=== PATIENT | female | born 1945 | race Caucasian/White ===

== ENCOUNTER 2016-11-02 | Outpatient (CLI) | payer MEDICARE, OTHER | END 2016-11-02 02:42 | disposition EMS.NT ==

== ENCOUNTER 2017-11-27 09:03 | Outpatient (CLI) | payer MEDICARE, OTHER ==
--- NOTE | 2017-11-27 16:11 | DEXA Report ---
DEXA SCAN: 11/27/2017 CLINICAL INDICATION: Postmenopausal. TECHNIQUE: Dual energy x-ray absorptiometry (DXA) was performed on a [employer] system. Regions measured are the AP spine, femoral neck, and, if needed, forearm. COMPARISON: None. In accordance with the International Society for Clinical Densitometry (ISCD) guidelines, data from previous exams may be reanalyzed using current recommendations and techniques. This is done to allow a more accurate basis for comparison with the current study. FINDINGS: The data for the lumbar spine is as follows: REGION BMD (g/cm/cm) T-SCORE Z-SCORE L1 1.528 3.3 5.3 L2 1.387 1.6 3.6 L3 1.272 0.6 2.6 L4 1.239 0.3 2.3 TOTAL 1.343 1.4 3.4 NOTE: All evaluable vertebrae are used for classification. The data for the hip is as follows: REGION BMD (g/cm/cm) T-SCORE Z-SCORE Neck 0.782 -1.8 0.2 TOTAL 0.752 -2.0 -0.1 NOTE: The femoral neck or total proximal femur, whichever is lowest, is used for classification. IMPRESSION: THE WHO CLASSIFICATION BASED ON THE INTERNATIONAL REFERENCE STANDARD IS OSTEOPENIA. THE FRACTURE RISK IS INCREASED. RECOMMENDATION: Patients with diagnosis of osteoporosis or osteopenia should have regular bone mineral density assessment. For those eligible for Medicare, routine testing is allowed once every 2 years. Testing frequency can be increased for patients who have rapidly progressing disease or for those who are receiving medical therapy to restore bone mass. COMMENT: World Health Organization (WHO) definitions for osteoporosis and osteopenia: NORMAL BMD: T-score at 1.0 or higher, fracture risk is low. OSTEOPENIA BMD: T-score between 1.0 and -2.5, fracture risk is increased. OSTEOPOROSIS BMD: T-score at 2.5 or lower, fracture risk high. National Osteoporosis Foundation recommends: 1. Obtain adequate dietary calcium (at least 1200 mg per day) and vitamin D (400-800 international units per day). 2. Participate, as appropriate, in regular weightbearing and muscle-strengthening exercise. 3. Avoid tobacco use and reduce alcohol and caffeine intake. 4. For more detailed information see the website at www.NOF.org. TD: 11/27/2017 11:44
== END 2017-11-27 09:04 | disposition home or self-care (01) ==
LOC: DI 09:03
PROVIDERS: ATTEND Family Medicine
DX: M85.88 Other specified disorders of bone density and structure, other site (principal)
CPT/HCPCS: 77080

== ENCOUNTER 2020-05-11 22:30 | Emergency (ER) | payer MEDICARE, OTHER ==
--- NOTE | 2020-05-11 22:57 | ED Physician Documentation ---
PD HPI UPPER EXT INJURY - Stated complaint Stated Complaint: R ARM THROB - Chief complaint Chief Complaint: Ext Problem - History obtained from History obtained from: Patient - History of Present Illness Location: Right, Shoulder (axillary and anterior shoulder area.) Type of injury: No: Fall, Twist Where injury occurred: Home Timing - onset: How many hours ago (3) Timing - duration: Hours (3) Timing - details: Abrupt onset (She states she was lying in bed starting to go to sleep and noticed onset of a aching and throbbing feeling in the right axilla and anterior shoulder. Slight worse with movement. No change with breathing. She denied chest pain per se. No injury noted. She was concerned for heart cause.), Waxing and waning Improved by: No: Rest Worsened by: Moving (slightly more with ROM but not distinctly movement related.). No: Palpating Associated symptoms: No: Weakness, Numbness, Swelling Similar symptoms before: Has not had sx before (She is active during the day and has not had any exertional dyspnea nor chest pain.) Recently seen: Not recently seen Review of Systems Constitutional: denies: Fever, Chills, Myalgias Nose: denies: Rhinorrhea / runny nose, Congestion Throat: denies: Sore throat Cardiac: denies: Chest pain / pressure, Palpitations, Pedal edema (has had some mild swelling without redness around left anterior lower leg where she had skin lesion removed a week ago. No signs infection such as redness nor drainage.), Calf pain Respiratory: denies: Cough GI: denies: Abdominal Pain, Nausea, Vomiting, Diarrhea Neurologic: denies: Focal weakness, Numbness, Near syncope PD PAST MEDICAL HISTORY - Past Medical History Cardiovascular: None, Hypertension, High cholesterol Respiratory: None Neuro: None Endocrine/Autoimmune: None GI: GERD : None HEENT: None Psych: Claustrophobia Musculoskeletal: None Derm: None - Past Surgical History Past Surgical History: No - Present Medications Home Medications: Ambulatory Orders Medication Instructions Recorded Confirmed Lisinopril/Hydrochlorothiazide 1 each PO DAILY 01/13/13 01/13/13 [Lisinopril-Hctz 20-25 mg Tab] Lovastatin [Mevacor] 40 mg PO DAILY 01/13/13 01/13/13 Omeprazole [PriLOSEC] 20 mg PO DAILY 01/13/13 01/13/13 Potassium Chloride 10 meq PO DAILY #15 tablet.er 05/12/20 - Allergies Allergies/Adverse Reactions: Allergies Allergy/AdvReac Type Severity Reaction Status Date / Time No Known Drug Allergies Allergy Verified 01/13/13 04:36 - Social History Does the pt smoke?: No Smoking Status: Never smoker Does the pt drink ETOH?: Yes Does the pt have substance abuse?: No - Immunizations Immunizations are current?: Yes PD ED PE NORMAL - Vitals Vital signs reviewed: Yes - General General: Alert and oriented X 3, No acute distress, Well developed/nourished - HEENT HEENT: Pharynx benign - Neck Neck: Supple, no meningeal sign, No adenopathy - Cardiac Cardiac: RRR, No murmur - Respiratory Respiratory: Clear bilaterally, Other (No tenderness nor swelling nor adenopathy noted in the axilla. No chest wall tenderness on the right.) - Abdomen Abdomen: Soft, Non tender - Derm Derm: Normal color, Warm and dry - Extremities Extremities: No deformity, No tenderness to palpate, No edema, No calf tenderness / cord, Other (Healing wound on the left anterior lower leg without any signs of infection.) - Neuro Neuro: Alert and oriented X 3, No motor deficit, Normal speech Results - Vitals Vitals: Vital Signs - 24 hr 05/11/20 05/12/20 22:35 00:36 Temperature 36.7 C Heart Rate 68 70 Respiratory 18 18 Rate Blood Pressure 158/87 H 162/92 H O2 Saturation 100 98 Oxygen O2 Source Room air - EKG (time done) 23:24 Rate: Rate (enter#) (67) Rhythm: NSR [place]: Normal Intervals: Normal AR QRS: Normal Ischemia: Normal ST segments. No: ST elevation c/w ischemia, ST depression Compare to prior EKG: Old EKG unavailable - Labs Labs: Laboratory Tests 05/11/20 05/11/20 05/11/20 23:41 23:41 23:41 WBC 3.6 L RBC 3.76 L Hgb 11.6 L Hct 35.0 L MCV 93.1 MCH 30.9 MCHC 33.1 RDW 12.5 Plt Count 170 MPV 8.7 Neut # (Auto) 1.8 Lymph # (Auto) 1.3 L [place] # (Auto) 0.4 Eos # (Auto) 0.1 Baso # (Auto) 0.0 Absolute Nucleated RBC 0.00 Nucleated RBC % 0.0 Sodium 133 L Potassium 3.0 L Chloride 95 L Carbon Dioxide 28 Anion Gap 10.0 BUN 9 Creatinine 0.6 Estimated GFR (MDRD) 97 Glucose 120 H Calcium 9.5 Total Bilirubin 0.7 AST 25 ALT 18 Alkaline Phosphatase 46 Troponin I High Sens 2.5 Total Protein 7.0 Albumin 4.3 Globulin 2.7 Albumin/Globulin Ratio 1.6 Lipase 34 PD MEDICAL DECISION MAKING - ED course Complexity details: considered differential (No signs of cardiac cause based on EKG and troponin. Her potassium is little bit low but I do not think this would be causing her symptoms. Otherwise blood count is normal and remaining chemistry panel. Presume some muscular type pain. No palpation of abscess or skin lesion.), d/w patient Departure - Departure Disposition: 01 Home, Self Care Clinical Impression: Pain in right axilla, Hypokalemia Condition: Stable Record reviewed to determine appropriate education?: Yes Instructions: ED Potassium Deficiency, ED Strain Muscle Ext Follow-Up: Cedric Mathews MD [Primary Care Provider] - Prescriptions: Potassium Chloride 10 meq PO DAILY #15 tablet.er Comments: Your EKG and blood tests do not show any indication of heart injury/heart attack. Your blood tests otherwise show a mildly low potassium level, which I think is unrelated to the symptoms you are having but still worth supplementing over the next couple of weeks. Presume a muscular type pain and you can use some Tylenol or ibuprofen if you times a day as needed. Recheck if not improved over the next several days or if other symptoms develop with it. Discharge Date/Time: 05/12/20 00:36
[2020-05-11 23:47] LABS: BASOPHILS % (AUTO) 1.1 %; EOSINOPHILS # (AUTO) 0.1 10^3/uL (0.0-0.7); EOSINOPHILS % (AUTO) 3.3 %; HGB - HEMOGLOBIN 11.6 g/dL (12.0-16.0); LYMPHOCYTES # (AUTO) 1.3 10^3/uL (1.5-3.5); LYMPHOCYTES % (AUTO) 35.6 %; MEAN CORPUSCULAR HEMOGLOBIN 30.9 pg (27.0-31.0); MEAN CORPUSCULAR HGB CONC 33.1 g/dL (32.0-36.0); MEAN CORPUSCULAR VOLUME 93.1 fL (81.0-99.0); MEAN PLATELET VOLUME 8.7 fL (7.9-10.8); MONOCYTES # (AUTO) 0.4 10^3/uL (0.0-1.0); NEUTROPHILS # (AUTO) 1.8 10^3/uL (1.5-6.6); NEUTROPHILS % (AUTO) 49.7 %; PLT - PLATELET COUNT 170 10^3/uL (130-450); RED BLOOD COUNT 3.76 10^6/uL (4.20-5.40); RED CELL DISTRIBUTION WIDTH 12.5 % (12.0-15.0); WHITE BLOOD COUNT 3.6 x10^3/uL (4.8-10.8)
[2020-05-12] LABS: ALBUMIN 4.3 g/dL (3.2-5.5); ALBUMIN/GLOBULIN RATIO 1.6 (1.0-2.2); BILIRUBIN,TOTAL 0.7 mg/dL (0.2-1.0); CALCIUM 9.5 mg/dL (8.5-10.3); CREATININE 0.6 mg/dL (0.4-1.0)
[2020-05-12] MEDS ORDERED: ACETAMINOPHEN 325 MG TABLET PO STA (00:17)
[2020-05-12 00:37] VITALS: BP 162/92
== END 2020-05-12 00:36 | disposition home or self-care (01) ==
LOC: ED 22:30
DX: M79.621 Pain in right upper arm (principal); M25.511 Pain in right shoulder; E87.6 Hypokalemia; I10 Essential (primary) hypertension
CPT/HCPCS: 36415; 80053; 83690; 84484; 85025; 93005; 99283; 99284; A9270

== ENCOUNTER 2020-09-24 12:35 | Outpatient (CLI) | payer MEDICARE ==
--- NOTE | 2020-09-25 07:16 | Mammography Report ---
BILATERAL DIGITAL SCREENING MAMMOGRAM 3D/2D: 09/24/2020 CLINICAL: Routine screening. Comparison is made to exams dated: 08/16/2019 mammogram, 08/15/2018 mammogram, 08/08/2017 mammogram, a nd 08/02/2016 mammogram - [facility]. The tissue of both breasts is predominantly fatt y. There are benign calcifications in both breasts. There also are benign vascular calcifications in th e right breast. No significant masses, calcifications, or other findings are seen in either breast. There has been no significant interval change. IMPRESSION: BENIGN There is no mammographic evidence of malignancy. A 1 year screening mammogram is recommended. This exam was interpreted at Station ID: [id number]. NOTE: For mammograms, a report in lay terms will be sent to the patient. Approximately 15% of breast malignancies will not be visualized mammographically. In the management of a palpable breast mass, a negative mammogram must not discourage biopsy of a clinically suspicious lesion. Electronically Signed By: Kemar Patricio acr/penrad:09/24/2020 13:36:33 ACR BI-RADS Category 2: Benign Finding(s) 3342F PARENCHYMAL PATTERN: (F) - The breast(s) demonstrate(s) diffuse fatty replacement. BI-RADS CATEGORY: (2) - 2 RECOMMENDATION: (ANNUAL) - Recommend routine annual screening mammography. [id number] 1 year screening LATERALITY: (B)
== END 2020-09-24 12:36 | disposition home or self-care (01) ==
LOC: DI 12:35
DX: Z12.31 Encounter for screening mammogram for malignant neoplasm of breast (principal)
CPT/HCPCS: 77067

== ENCOUNTER 2021-10-05 08:49 | Emergency (ER) | payer MEDICARE, OTHER ==
--- NOTE | 2021-10-05 09:21 | ED Physician Documentation ---
PD HPI HEADACHE - Stated complaint Stated Complaint: L WRIST INJ, HEADACHES - Chief complaint Chief Complaint: General - History obtained from History obtained from: Patient - History of Present Illness Timing - onset: Last night Timing - onset during: Rest Timing - details: Abrupt onset, Still present Worst headache ever?: Worst headache ever? Location: Back Quality: Throbbing, Aching Associated symptoms: No: Fever, Stiff neck, Nausea, Vomiting Contributing factors: No: Anticoagulated, Recent illness Similar symptoms before: Has not had sx before Recently seen: Surgery (3 weeks ago with graft from forearm placed into right roof of mouth and upper lip s/p mouth tumor resection. NO problems with the mouth graft, per patient. Has posterior headche. 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 denies: Sore throat Respiratory: denies: Cough PD PAST MEDICAL HISTORY - Past Medical History Cardiovascular: None, Hypertension, High cholesterol Respiratory: None Neuro: None Endocrine/Autoimmune: None GI: GERD : None HEENT: None Psych: Claustrophobia Musculoskeletal: None Derm: None - Past Surgical History Past Surgical History: No - Present Medications Home Medications: Ambulatory Orders Medication Instructions Recorded Confirmed Lisinopril/Hydrochlorothiazide 1 each PO DAILY 01/13/13 01/13/13 [Lisinopril-Hctz 20-25 mg Tab] Lovastatin [Mevacor] 40 mg PO DAILY 01/13/13 01/13/13 Omeprazole [PriLOSEC] 20 mg PO DAILY 01/13/13 01/13/13 Potassium Chloride 10 meq PO DAILY #15 tablet.er 05/12/20 HYDROcod/ACETAM 5/325 [[place] 5/325] 1 ea PO Q6H PRN #12 tablet 10/05/21 Naproxen 250 mg PO BID 10 Days #20 tablet 10/05/21 cephALEXin [Keflex] 500 mg PO TID #20 cap 10/05/21 - Allergies Allergies/Adverse Reactions: Allergies Allergy/AdvReac Type Severity Reaction Status Date / Time No Known Drug Allergies Allergy Verified 10/05/21 09:10 - Social History Does the pt smoke?: No Smoking Status: Never smoker Does the pt drink ETOH?: Yes Does the pt have substance abuse?: No - Immunizations Immunizations are current?: Yes PD ED PE NORMAL - Vitals Vital signs reviewed: Yes - General General: Alert and oriented X 3, Well developed/nourished - HEENT HEENT: Atraumatic, PERRL, EOMI, Pharynx benign - Neck Neck: Supple, no meningeal sign, No adenopathy - Cardiac Cardiac: RRR, No murmur - Respiratory Respiratory: Clear bilaterally - Derm Derm: Normal color, Warm and dry - Extremities Extremities: Other (left volar forearm with rounded wound to fatty tissue, with mild yellow base and surrounding skin redness. NO fluctuance. ) - Neuro Neuro: Alert and oriented X 3, No motor deficit, No sensory deficit Results - Vitals Vitals: Vital Signs - 24 hr 10/05/21 10/05/21 09:05 10:05 Temperature 36.1 C L 36.9 C Heart Rate 70 61 Respiratory 16 16 Rate Blood Pressure 137/84 H 131/77 H O2 Saturation 99 99 Oxygen O2 Source Room air - Labs Labs: Microbiology 10/05/21 09:41 Wound Culture - Preliminary Wrist - Left - Rads (name of study) head CT Radiology: Prelim report reviewed (no CT evidence of acute intracranial abnormality. ) PD MEDICAL DECISION MAKING - ED course Complexity details: reviewed results (head CT okay. ), considered differential (left forearm graft donor site with redness and mild yellow base weeping. Culture obtained. ), d/w patient Departure - Departure Disposition: 01 Home, Self Care Clinical Impression: Wound infection after surgery Headache Qualifiers: Headache type: unspecified Headache chronicity pattern: unspecified pattern Intractability: not intractable Qualified Code(s): R51.9 - Headache, unspecified Condition: Stable Record reviewed to determine appropriate education?: Yes Instructions: ED Cephalgia Unspecified, ED Wound Check Laceration FU Infec Follow-Up: Cedric Mathews MD [Primary Care Provider] - Prescriptions: cephALEXin [Keflex] 500 mg PO TID #20 cap Naproxen 250 mg PO BID 10 Days #20 tablet HYDROcod/ACETAM 5/325 [[place] 5/325] 1 ea PO Q6H PRN #12 tablet PRN Reason: Pain Comments: Your head CT appears normal without any signs of bleeding swelling masses. I presume your headache is likely related to either some tension or may be referred from the face with your recent surgical procedure. I would suggest using an anti-inflammatory such as naproxen twice daily with food. To that add Tylenol 4 times a day for pain. You could use hydrocodone instead if needed for worse pain episodically in the short-term. Your left forearm wound has some redness and mild drainage that suggest early infection. Cephalexin antibiotic as directed. Follow-up with your surgeon as planned. Check your calendar to see when that is and be sure to call if there is not a definite follow-up appointment. If your follow-up is not this week or early next week, I would suggest following up with your primary care or the walk-in clinic for a wound check of your forearm in about 3 to 4 days. The wound culture should result in a couple of days and we will call if we need to modify your antibiotics based on that. I transmitted your prescriptions to [facility] pharmacy in [place]. I am prescribing a short course of narcotic pain medication for you. These are potentially dangerous and addictive medications that should be used carefully. These medications may constipate you. Take an aiqk-uzu-ofocqei stool softener such as docusate twice daily with plenty of water while taking these medications. If you go 24 hours without a bowel movement, take [id number]-[id number] MiraLAX, per package instructions. Do not drink or drive while taking these medications. If you received narcotic or sedating medications while in the emergency department do not drive for 24 hours. Store this medication in a safe, secure place and out of reach of children. It is a violation of federal law to give or sell this medication to another person or to use in a manner other than prescribed. The ED will not refill narcotic prescriptions, including prescriptions lost or stolen. You can dispose of unwanted medications at the [facility] office or at several pharmacies such as [facility]. Discharge Date/Time: 10/05/21 12:49
[2021-10-05] MEDS ORDERED: MUPIROCIN 2% OINT 1 GM TOP STA (09:53)
[2021-10-05] MEDS ORDERED: cephALEXin 250 MG CAPSULE PO STA (09:54)
[2021-10-05 10:06] VITALS: BP 131/77
--- NOTE | 2021-10-05 11:20 | CT Report ---
PROCEDURE: HEAD WO INDICATIONS: headache TECHNIQUE: Noncontrast 4.5 mm thick angled axial sections acquired from the foramen magnum to the vertex. For r adiation dose reduction, the following was used: automated exposure control, adjustment of mA and/or kV according to patient size. COMPARISON: None. FINDINGS: Image quality: Excellent. CSF spaces: Basal cisterns are patent. No extra-axial fluid collections. The ventricles are symmet kala in size and shape. Brain: No intracranial bleeds or masses. There is cerebral volume loss for age, with resultant vent ricular and sulcal prominence. There are periventricular and deep white matter chronic small vessel ischemic changes. There is intracranial internal carotid artery atherosclerosis. Skull and face: Calvarium and visualized facial bones appear intact, without suspicious lesions. Sinuses: Mucosal thickening in right maxillary sinus and ethmoid air cells are seen. Mild mucosal thi ckening in right frontal sinus is also seen. Bilateral mastoids are well aerated. IMPRESSION: 1. No CT evidence of acute intracranial abnormalities. 2. Diffuse age-related atrophy and moderate white matter chronic small vessel ischemic changes. 3. Mucosal thickening in right paranasal sinuses suggestive of likely chronic sinusitis. Reviewed by: Salvador Nelson MD on 10/05/2021 11:18 AM PST Approved by: Salvador Nelson MD on 10/05/2021 11:18 AM PST Station ID: [id number]
== END 2021-10-05 12:49 | disposition home or self-care (01) ==
LOC: ED 08:49
DX: R51.9 Headache, unspecified (principal); T81.49XA Infection following a procedure, other surgical site, initial encounter; Y83.2 Surgical operation with anastomosis, bypass or graft as the cause of abnormal reaction of the patient, or of later complication, without mention of misadventure at the time of the procedure; I10 Essential (primary) hypertension
CPT/HCPCS: 70450; 87070; 87205; 99283; 99284; A9270; 87077; 87181

== ENCOUNTER 2021-10-07 19:06 | Outpatient (CLI) | payer MEDICARE, OTHER | END 2021-10-07 19:07 | disposition short-term general hospital (02) | LOC: EMS 19:06 | DX: M25.551 Pain in right hip (principal); W01.0XXA Fall on same level from slipping, tripping and stumbling without subsequent striking against object, initial encounter | CPT/HCPCS: A0425; A0429 ==

== ENCOUNTER 2021-12-21 08:07 | Emergency (ER) | payer MEDICARE, OTHER ==
[2021-12-21 08:22] VITALS: BP 130/75
[2021-12-21] MEDS ORDERED: KETOROLAC 30 MG/ML VIAL IM STA (08:28)
[2021-12-21] MEDS ORDERED: HYDROmorphone 1 MG/ML CARPUJECT IM STA (08:29)
[2021-12-21] MEDS ORDERED: LIDOCAINE 2% 10 ML MDV SUBQ ONE (08:29)
--- NOTE | 2021-12-21 08:30 | ED Physician Documentation ---
PD HPI UPPER EXT INJURY - Stated complaint Stated Complaint: L ARM PX - Chief complaint Chief Complaint: Trauma Ext - History obtained from History obtained from: Patient, Family () - History of Present Illness Location: Left, Wrist Type of injury: Fall Where injury occurred: Home (out in yard getting dogs inside, slipped and fell onto outstretched arm left side.) Timing - onset: Last night Timing - details: Abrupt onset, Still present Worsened by: Moving, Palpating Associated symptoms: Swelling. No: Weakness, Numbness Similar symptoms before: Has not had sx before (denies prior wrist fractures.) Recently seen: Not recently seen Review of Systems Constitutional: denies: Fever, Chills Nose: denies: Rhinorrhea / runny nose, Congestion Cardiac: denies: Chest pain / pressure Respiratory: denies: Cough GI: denies: Abdominal Pain, Nausea, Vomiting Skin: denies: Abrasion (s), Laceration (s) Neurologic: denies: Focal weakness, Numbness, Headache PD PAST MEDICAL HISTORY - Past Medical History Cardiovascular: None, Hypertension, High cholesterol Respiratory: None Neuro: None Endocrine/Autoimmune: None GI: GERD : None HEENT: None Psych: Claustrophobia Musculoskeletal: None Derm: None - Past Surgical History Past Surgical History: No - Present Medications Home Medications: Ambulatory Orders Medication Instructions Recorded Confirmed Lisinopril/Hydrochlorothiazide 1 each PO DAILY 01/13/13 01/13/13 [Lisinopril-Hctz 20-25 mg Tab] Lovastatin [Mevacor] 40 mg PO DAILY 01/13/13 01/13/13 Omeprazole [PriLOSEC] 20 mg PO DAILY 01/13/13 01/13/13 Potassium Chloride 10 meq PO DAILY #15 tablet.er 05/12/20 HYDROcod/ACETAM 5/325 [[place] 5/325] 1 ea PO Q6H PRN #12 tablet 10/05/21 Naproxen 250 mg PO BID 10 Days #20 tablet 10/05/21 cephALEXin [Keflex] 500 mg PO TID #20 cap 10/05/21 Acetaminophen [Acetaminophen Extra 500 mg PO QID PRN #40 tablet 12/21/21 Strength] oxyCODONE [Roxicodone] 5 mg PO Q6H PRN #12 tablet 12/21/21 - Allergies Allergies/Adverse Reactions: Allergies Allergy/AdvReac Type Severity Reaction Status Date / Time No Known Drug Allergies Allergy Verified 12/21/21 08:19 - Social History Does the pt smoke?: No Smoking Status: Never smoker Does the pt drink ETOH?: Yes Does the pt have substance abuse?: No - Immunizations Immunizations are current?: Yes PD ED PE NORMAL - Vitals Vital signs reviewed: Yes - General General: Alert and oriented X 3, Well developed/nourished, Other (appears in pain due to wrist. ) - HEENT HEENT: Atraumatic - Neck Neck: Supple, no meningeal sign, No bony TTP, No adenopathy - Respiratory Respiratory: No respiratory distress, Clear bilaterally - Abdomen Abdomen: Soft, Non tender - Back Back: No spinal TTP - Derm Derm: Normal color, Warm and dry - Extremities Extremities: Other (left wrist with swelling mainly dodrsal and radial aspects. Normal pulses at wrist. Good color and cap refill in fingers. Slgith cool feeling of skin. volar distal forearm scar, which sindhu says was skin graft donor site. ) - Neuro Neuro: Alert and oriented X 3, No motor deficit, No sensory deficit, Normal speech Results - Vitals Vitals: Vital Signs - 24 hr 12/21/21 08:19 Temperature 37.1 C Heart Rate 81 Respiratory 18 Rate Blood Pressure 130/75 O2 Saturation 92 Oxygen O2 Source Room air - Rads (name of study) left wrist Radiology: Prelim report reviewed (prior fracturew with callus, hardware fixation appears in place. Cannot exclude injury in old fracture area. THere is new fracture at distal radius. ), See rad report Procedures - Splint (location) left wrist Splint applied by: Tech Type of splint: Fiberglass, Short arm Other: Patient tolerated well, No complications, Neurovascular intact, Sling provided PD MEDICAL DECISION MAKING - ED course Complexity details: reviewed results (prior hardware from orthopedic fixation of old fracture. Cannot exclude new fracture in old area, but would be stable with the fixation present. OTherwise appears new fracture just at very distal ra dius. ), considered differential, d/w patient, d/w family (spouse) Departure - Departure Disposition: 01 Home, Self Care Clinical Impression: Fall from slip, trip, or stumble Qualifiers: Encounter type: initial encounter Qualified Code(s): W01.0XXA - Fall on same level from slipping, tripping and stumbling without subsequent striking against object, initial encounter Distal radius fracture, left Qualifiers: Encounter type: initial encounter Fracture type: closed Fracture morphology: unspecified fracture morphology Qualified Code(s): S52.502A - Unspecified fracture of the lower end of left radius, initial encounter for closed fracture Condition: Stable Record reviewed to determine appropriate education?: Yes Instructions: ED Fx Colles Wrist No Redu Requ Follow-Up: Cedric Mathews MD [Primary Care Provider] - Kavon Suazo MD [Provider Admit Priv/Credential] - Prescriptions: Acetaminophen [Acetaminophen Extra Strength] 500 mg PO QID PRN #40 tablet PRN Reason: Pain oxyCODONE [Roxicodone] 5 mg PO Q6H PRN #12 tablet PRN Reason: Pain Comments: Keep the area splinted and elevated. Apply ice periodically today and tomorrow. Remove your ring here today in the ER in case you get swelling through the fingers. Elevate your arm often and rested with the sling. Use Tylenol 500 mg 4 times daily for the next 7 to 10 days. To that add oxycodone every 6-8 hours if needed for worse pain. I would anticipate decreasing in the pain over the next few days as the swelling and initial injury go down. Follow-up with orthopedics in the next week, call for an appointment for follow- up on this. At that point they will likely change your splint to a cast for several more weeks. I transmitted your prescriptions to [facility] pharmacy in [place]. I am prescribing a short course of narcotic pain medication for you. These are potentially dangerous and addictive medications that should be used carefully. These medications may constipate you. Take an ebyq-fhw-ulthjcm stool softener such as docusate twice daily with plenty of water while taking these medications. If you go 24 hours without a bowel movement, take pqef-vcz-zypvwcj MiraLAX, per package instructions. Do not drink or drive while taking these medications. If you received narcotic or sedating medications while in the emergency department do not drive for 24 hours. Store this medication in a safe, secure place and out of reach of children. It is a violation of federal law to give or sell this medication to another person or to use in a manner other than prescribed. The ED will not refill narcotic prescriptions, including prescriptions lost or stolen. You can dispose of unwanted medications at the [facility] office or at several pharmacies such as [facility]. Discharge Date/Time: 12/21/21 10:35
--- OUTSIDE RECORDS SUMMARY | 2021-12-21 08:49 | EXTERNAL MEDICAL SUMMARY RPT | Continuity of Care Document ---
:1945 Author Organization [facility] Address [address] [place] [address] Phone Care Team Providers Name Role Phone Registrar Unavailable Unavailable M.D. Unavailable Unavailable MA Unavailable Unavailable Susan Unavailable Unavailable Allergies No information. Encounters No information. Medications date description facility 20211214 hydrocodone-acetaminophen [facility] Bill [id number] cyclobenzaprine [facility] Bill [id number] amoxicillin-pot clavulanate [facility] Bill 20211214 cephalexin [facility] Bill [id number] oxycodone [facility] [id number] hydrocodone-acetaminophen [facility] Bill [id number] cyclobenzaprine [facility] Bill [id number] amoxicillin-pot clavulanate [facility] Bill [id number] cephalexin [facility] Bill [id number] oxycodone [facility] [id number] hydrocodone-acetaminophen [facility] [id number] cyclobenzaprine [facility] [id number] potassium chloride [facility] Bill [id number] amoxicillin-pot clavulanate [facility] [id number] valacyclovir [facility] [id number] sertraline [facility] [id number] cephalexin [facility] [id number] omeprazole [facility] [id number] naproxen [facility] [id number] lovastatin [facility] Bill [id number] lisinopril-hydrochlorothiazide [facility] Bill [id number] oxycodone [facility] Bill [id number] hydrocodone-acetaminophen [facility] Bill [id number] cyclobenzaprine [facility] Bill [id number] potassium chloride [facility] Bill [id number] amoxicillin-pot clavulanate [facility] Bill [id number] valacyclovir [facility] [id number] sertraline [facility] [id number] cephalexin [facility] [id number] omeprazole [facility] [id number] naproxen [facility] Bill [id number] lovastatin [facility] Bill [id number] lisinopril-hydrochlorothiazide [facility] Bill [id number] oxycodone [facility] Bill [id number] hydrocodone-acetaminophen [facility] Bill [id number] cyclobenzaprine [facility] Bill [id number] potassium chloride [facility] Bill [id number] amoxicillin-pot clavulanate [facility] Bill [id number] valacyclovir [facility] Bill [id number] sertraline [facility] Bill [id number] cephalexin [facility] Bill [id number] omeprazole [facility] Bill [id number] naproxen [facility] Bill [id number] lovastatin [facility] Bill [id number] lisinopril-hydrochlorothiazide [facility] Bill [id number] oxycodone [facility] Services Bill [id number] hydrocodone-acetaminophen All 20211105 cyclobenzaprine All 20211105 potassium chloride All 20211105 amoxicillin-pot clavulanate All 20211105 valacyclovir All 20211105 sertraline All 20211105 cephalexin All 20211105 omeprazole All 20211105 naproxen All 20211105 lovastatin All 20211105 lisinopril-hydrochlorothiazide All 20211105 oxycodone All 20211105 hydrocodone-acetaminophen All 20211105 cyclobenzaprine All 20211105 potassium chloride All 20211105 amoxicillin-pot clavulanate All 20211105 valacyclovir All 20211105 sertraline All 20211105 cephalexin All 20211105 omeprazole All 20211105 naproxen All 20211105 lovastatin All 20211105 lisinopril-hydrochlorothiazide All 20211105 oxycodone All Problems date description facility 20211214 Tobacco smoking status [facility] Walk[facility]In [facility] 20211214 Other specified sprain of left wrist, [facility] initial encounter [facility] [place] 20211214 Never smoker [facility] [place] 20211214 Other wrist sprain [facility] Care [facility] Services [facility] 20211214 Exercise [facility] Care [facility] Anc[facility] Services [facility] 20211105 Removal of sabrina Walk[facility]In [facility] Care [facility] Anc[facility] Services [facility] 20211105 Encounter for removal of sutures Walk- In [facility] Primary Care & Ancillary Services [facility] 20211105 Tobacco smoking status [facility] Walk[facility]In [facility] & Anc[facility] Services [facility] 20211105 No current problems or disability - Al l unknown 20211105 Never smoker All Results No information. Vital Signs date measurement value source 20211105 weight_standard 120 lb 20211105 weight_metric 54.43 kg 20211105 temperature_standard 98 F 20211105 temperature_metric 36.67 C 20211105 respiration_rate 15 /min 20211105 height_standard 64.5 in 20211105 height_metric 163.83 cm 20211105 heart_rate 80 /min 20211105 BP_systolic 159 mm[Hg] 20211105 BP_diastolic 85 mm[Hg] 20211105 BMI 20.35 kg/m2 20211105 weight_standard 120 lb 20211105 weight_metric 54.43 kg 20211105 temperature_standard 98 F 20211105 temperature_metric 36.67 C 20211105 respiration_rate 15 /min 20211105 height_standard 64.5 in 20211105 height_metric 163.83 cm 20211105 heart_rate 80 /min 20211105 BP_systolic 159 mm[Hg] 20211105 BP_diastolic 85 mm[Hg] 20211105 BMI 20.35 kg/m2 20211105 weight_standard 120 lb 20211105 weight_metric 54.43 kg 20211105 temperature_standard 98 F 20211105 temperature_metric 36.67 C 20211105 respiration_rate 15 /min 20211105 height_standard 64.5 in 20211105 height_metric 163.83 cm 20211105 heart_rate 80 /min 20211105 BP_systolic 159 mm[Hg] 20211105 BP_diastolic 85 mm[Hg] 20211105 BMI 20.35 kg/m2 20211214 weight_standard 120 lb 20211214 weight_metric 54.43 kg 20211214 temperature_standard 98.5 F 20211214 temperature_metric 36.94 C 20211214 respiration_rate 12 /min 20211214 height_standard 64.5 in 20211214 height_metric 163.83 cm 20211214 heart_rate 69 /min 20211214 BP_systolic 165 mm[Hg] 20211214 BP_diastolic 89 mm[Hg] 20211214 BMI 20.35 kg/m2 20211214 weight_standard 120 lb 20211214 weight_metric 54.43 kg 20211214 temperature_standard 98.5 F 20211214 temperature_metric 36.94 C 20211214 respiration_rate 12 /min 20211214 height_standard 64.5 in 20211214 height_metric 163.83 cm 20211214 heart_rate 69 /min 20211214 BP_systolic 165 mm[Hg] 20211214 BP_diastolic 89 mm[Hg] 20211214 BMI 20.35 kg/m2
[2021-12-21] MEDS ORDERED: LIDOCAINE-MPF 2% 5 ML VIAL SUBQ ONE (09:00)
--- NOTE | 2021-12-21 09:19 | XRAY Report ---
PROCEDURE: Wrist 4 View LT INDICATIONS: Trauma TECHNIQUE: 4 views of the wrist were acquired. COMPARISON: None FINDINGS: Bones: ORIF of the mid and distal radius are present. There remains a mildly displaced fracture withi n the distal radial diaphysis with fracture lucencies remaining visible with callus formation on the lateral view. There is also cortical irregularity seen on lateral view of the distal radial metaphysi s. No suspicious bony lesions. Scaphoid view: No scaphoid fracture Soft tissues: No suspicious soft tissue calcifications. IMPRESSION: Distal radial ORIF with hardware intact. However, fracture lucency is noted within the distal diaphys is with areas of bridging callus formation. No priors are available for comparison. This appears to b e an old fracture of indeterminate age. Area of lucency could represent a focus of nonunion versus french perimposed new injury. Cortical irregularity of the distal radius on lateral view suspicious for nondisplaced fracture. Shor t interval imaging follow-up is recommended. Reviewed by: Fabiana Rodas MD on 12/21/2021 9:18 AM PDT Approved by: Fabiana Rodas MD on 12/21/2021 9:18 AM PDT Station ID: [id number]
== END 2021-12-21 10:35 | disposition home or self-care (01) ==
LOC: ED 08:07
DX: S52.502A Unspecified fracture of the lower end of left radius, initial encounter for closed fracture (principal); W01.0XXA Fall on same level from slipping, tripping and stumbling without subsequent striking against object, initial encounter; I10 Essential (primary) hypertension
CPT/HCPCS: 73110; 96372; 99283; 99284; J1170

== ENCOUNTER 2021-12-29 10:53 | Outpatient (CLI) | payer MEDICARE, OTHER ==
--- NOTE | 2021-12-29 16:43 | Mammography Report ---
BILATERAL DIGITAL SCREENING MAMMOGRAM 3D/2D WITH EXAGGERATED CC: 12/29/2021 CLINICAL: Routine screening. Comparison is made to exams dated: 09/24/2020 mammogram - [facility], 08/16/2019 [facility] mogram, 08/15/2018 mammogram, 08/08/2017 mammogram, and 08/02/2016 mammogram - [facility]. The tissue of both breasts is heterogeneously dense. This may lower the sensitivity of mammograph y. There are benign calcifications in both breasts. There also are benign vascular calcifications in th e right breast. No significant masses, calcifications, or other findings are seen in either breast. There has been no significant interval change. IMPRESSION: BENIGN There is no mammographic evidence of malignancy. A 1 year screening mammogram is recommended. This exam was interpreted at Station ID: [id number]. NOTE: For mammograms, a report in lay terms will be sent to the patient. Approximately 15% of breast malignancies will not be visualized mammographically. In the management of a palpable breast mass, a negative mammogram must not discourage biopsy of a clinically suspicious lesion. Electronically Signed By: David Barcenas M.D. aty/mcrad:12/29/2021 12:08:03 ACR BI-RADS Category 2: Benign Finding(s) 3342F PARENCHYMAL PATTERN: (D) - The breast(s) demonstrate(s) heterogeneously dense fibroglandular pardejay jared. BI-RADS CATEGORY: (2) - 2 RECOMMENDATION: (ANNUAL) - Recommend routine annual screening mammography. [id number] 1 year screening LATERALITY: (B)
== END 2021-12-29 10:54 | disposition home or self-care (01) ==
LOC: DI.S 10:53
DX: Z12.31 Encounter for screening mammogram for malignant neoplasm of breast (principal)

== ENCOUNTER 2022-01-10 10:00 | Outpatient (CLI) | payer MEDICARE, OTHER ==
--- NOTE | 2022-01-10 12:28 | XRAY Report ---
PROCEDURE: Wrist 3 View LT INDICATIONS: WRIST FRACTURE TECHNIQUE: 3 views of the wrist were acquired. COMPARISON: Left wrist radiographs 12/21/2021. FINDINGS: Bones: Curvilinear lucency at the distal radius which is more conspicuous compared to the prior exam. There is callus formation. This is consistent with nondisplaced fracture. There is prior fracture of the distal one third shaft of the radius. Plate and screw fixation spanning this fracture. There is ongoing bony remodeling at this prior fracture. There is plate liftoff of the distal aspect of the mabry rdware. This appears unchanged. Alignment is unchanged. No dislocation. Advanced degenerative change at the first CMC joint. No suspicious bony lesions. Soft tissues: No suspicious soft tissue calcifications. IMPRESSION: 1. Ongoing healing at the nondisplaced distal radius fracture.. 2. Distal radial shaft fracture is unchanged. The spanning plate and screw fixation appears unchanged . There is liftoff of the distal plate. Reviewed by: mEory Leonard MD on 01/10/2022 12:26 PM PDT Approved by: Emory Leonard MD on 01/10/2022 12:26 PM PDT Station ID: [id number]
== END 2022-01-10 23:59 | disposition home or self-care (01) ==
LOC: DI.WOS 10:00
PROVIDERS: ATTEND Physician Assistant
DX: S52.551D Other extraarticular fracture of lower end of right radius, subsequent encounter for closed fracture with routine healing (principal); M18.12 Unilateral primary osteoarthritis of first carpometacarpal joint, left hand

== ENCOUNTER 2022-02-11 06:00 | Outpatient (CLI) | payer MEDICARE, OTHER ==
--- NOTE | 2022-02-11 14:06 | XRAY Report ---
PROCEDURE: Wrist 3 View LT INDICATIONS: WRIST FX TECHNIQUE: 3 views of the wrist were acquired. COMPARISON: 01/10/2022 FINDINGS: Bones: Previously described fracture demonstrates interval healing. Periosteal calcifications previou sly present have resolved. Plate and screw fixation hardware spans the fracture in the distal radial metaphysis. The bones are demineralized with degenerative changes of the first carpometacarpal joint and triscaphe joint. Soft tissues: No suspicious soft tissue calcifications. IMPRESSION: Healing fracture of the left distal radius. Reviewed by: Kemar Patricio on 02/11/2022 2:05 PM PDT Approved by: Kemar Patricio on 02/11/2022 2:05 PM PDT Station ID: [id number]
== END 2022-02-11 23:59 | disposition home or self-care (01) ==
LOC: DI.WOS 06:00
PROVIDERS: ATTEND Physician Assistant
DX: S52.551D Other extraarticular fracture of lower end of right radius, subsequent encounter for closed fracture with routine healing (principal)

== ENCOUNTER 2022-12-12 10:38 | Outpatient (CLI) | payer MEDICARE, OTHER ==
--- NOTE | 2022-12-13 15:14 | Mammography Report ---
BILATERAL DIGITAL SCREENING MAMMOGRAM 3D/2D: 12/12/2022 CLINICAL: Routine screening. Comparison is made to exams dated: 12/29/2021 mammogram, 09/24/2020 mammogram - [facility], 08/16/2019 mammogram, 08/15/2018 mammogram, 08/08/2017 mammogram, and 08/02/2016 mammogram - [facility]. Both breasts are heterogeneously dense, which may obscure small masses (category c / 51-75% glandular tissue). There are benign calcifications in both breasts. There also are benign vascular calcifications in aysha th breasts. No significant masses, calcifications, or other findings are seen in either breast. There has been no significant interval change. IMPRESSION: BENIGN There is no mammographic evidence of malignancy. A 1 year screening mammogram is recommended. Based on the Tyrer Cuzick model (a risk assessment model) the patients lifetime risk is 3.2% and her 10 year risk is 0.0%. According to the ACR, ACS, and NCCN guidelines, an annual breast MRI exam denise g with mammogram is recommended if the patients lifetime risk is 20% or greater. This exam was interpreted at Station ID: [id number]. NOTE: For mammograms, a report in lay terms will be sent to the patient. Approximately 15% of breast malignancies will not be visualized mammographically. In the management of a palpable breast mass, a negative mammogram must not discourage biopsy of a clinically suspicious lesion. Electronically Signed By: Keli miller/ninoska:12/12/2022 13:02:05 letter sent: No_Letter ACR BI-RADS Category 2: Benign Finding(s) 3342F PARENCHYMAL PATTERN: (D) - The breast(s) demonstrate(s) heterogeneously dense fibroglandular parenchy ma. BI-RADS CATEGORY: (2) - 2 Mammogram [id number] 1 year screening LATERALITY: (B)
== END 2022-12-12 10:39 | disposition home or self-care (01) ==
LOC: DI 10:38
DX: Z12.31 Encounter for screening mammogram for malignant neoplasm of breast (principal)

== ENCOUNTER 2022-12-16 13:22 | Outpatient (CLI) | payer MEDICARE, OTHER ==
[2022-12-16] MEDS ORDERED: iohexoL-300 100 ML VIAL ONE (13:29)
--- NOTE | 2022-12-16 16:14 | CT Report ---
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 For radiation dose reduction, the following was use d: automated exposure control, adjustment of mA and/or kV according to patient size. COMPARISON: Correlation is made with overlapping portions of head CT, 10/05/2021. FINDINGS: Image quality: Motion artifact is noted. There is artifact associated with the metallic dental mabry rdware. Soft tissues: Scrutiny is given to a recurrent oral cavity masses. To the limits of this study, no r ecurrent masses are seen. Right neck postoperative change can be seen, with several postoperative clips. No edema, masses, or fluid collections. No enlarged lymph nodes. Vascular: Visualized vascular structures appear patent throughout. Bony vascular foramina and canal s appear normal. Bones: Postoperative change can be seen, with removal of a portion of the right anterior maxilla. The re is a bony breech between the oral cavity and the right maxillary sinus. Plate and screw fixation c an be seen involving the anterior right maxillary sinus. There is made of bony overgrowth along the medial aspects of the mandible on both sides, left worse t steele right. There is mild leftward nasal septal deviation. Sinuses: At least moderate mucosal thickening can be seen within the right maxillary sinus. The media l wall of the right maxillary sinus is demineralized. The external ortiz of the right maxillary sinus are thickened. Moderate mucosal thickening is seen within the anterior right ethmoid air cells. Ther e is mild to moderate mucosal thickening within the anteromedial right frontal sinus. The right ostio meatal complex is completely opacified and demineralized. No significant paranasal sinus disease can be seen. IMPRESSION: Postoperative change of the right inferior maxilla. Postoperative change of the right neck. No recurrent soft tissue masses are detected. No frankly enlarged lymph nodes are seen. There is a bony breech between the inferior right maxillary sinus and the oral cavity. Right-sided paranasal sinus disease is seen, with a chronic appearance, which is worst within the rig ht maxillary sinus. The right ostiomeatal complex is completely opacified and demineralized. Reviewed by: Vladimir Betancourt MD on 12/16/2022 3:13 PM AKDT Approved by: Vladimir Betancourt MD on 12/16/2022 3:13 PM [facility] Station ID: [id number]
[2022-12-16] MEDS ORDERED: iohexoL-300 100 ML VIAL IVP ONE (16:36)
== END 2022-12-16 13:23 | disposition home or self-care (01) ==
LOC: DI 13:22
PROVIDERS: ATTEND Family Medicine
DX: C06.0 Malignant neoplasm of cheek mucosa (principal); E78.00 Pure hypercholesterolemia, unspecified; J34.89 Other specified disorders of nose and nasal sinuses
CPT/HCPCS: 70487; Q9967

== ENCOUNTER 2023-07-27 08:01 | Outpatient (CLI) | payer MEDICARE, OTHER | END 2023-07-27 08:02 | disposition short-term general hospital (02) | LOC: EMS 08:01 | DX: M25.572 Pain in left ankle and joints of left foot (principal); M25.472 Effusion, left ankle; S99.912A Unspecified injury of left ankle, initial encounter; W19.XXXA Unspecified fall, initial encounter; Y92.019 Unspecified place in single-family (private) house as the place of occurrence of the external cause | CPT/HCPCS: A0425; A0427 ==

== ENCOUNTER 2023-10-18 08:00 | Outpatient (CLI) | payer MEDICARE, OTHER ==
--- NOTE | 2023-10-18 18:53 | XRAY Report ---
PROCEDURE: Lumbar Spine 2-3V INDICATIONS: LOW BACK PAIN TECHNIQUE: 3 view(s) of the lumbar spine were acquired. COMPARISON: None. FINDINGS: Bones: Vertebral body height is maintained. Diffuse disc space narrowing with hypertrophic facet ivett nts present. Grade 2 anterior spinal listhesis L5-S1. Atherosclerotic calcification of the abdominal aorta without evidence of aneurysm.. No suspicious bony lesions. Convex right thoracolumbar scoliosis present. Generalized decreased osseous mineralization present. Soft tissues: Overlying bowel gas pattern is normal. No suspicious soft tissue calcifications. IMPRESSION: Degenerative disc disease and arthropathy associated with grade 2 anterior spinal listhe sis L5-S1 Reviewed by: Franklin Sawant MD on 10/18/2023 5:52 PM AKST Approved by: Franklin Sawant MD on 10/18/2023 5:52 PM AKST Station ID: [id number]
--- NOTE | 2023-10-18 19:07 | XRAY Report ---
PROCEDURE: Ankle 3+V LT INDICATIONS: LEFT ANKLE PAIN TECHNIQUE: 3 views of the ankle were acquired. COMPARISON: None FINDINGS: Bones: Instrumented distal fibular fracture with associated fixation and associated syndesmotic scre ws in good position. Ankle mortise maintained. No evidence of hardware failure or loosening Soft tissues: Unremarkable without significant soft tissue swelling. No radiopaque foreign body. IMPRESSION: Healed instrumented distal fibular fracture. No hardware failure or loosening. Reviewed by: Franklin Sawant MD on 10/18/2023 6:05 PM [facility] Approved by: Franklin Sawant MD on 10/18/2023 6:05 PM [facility] Station ID: [id number]
== END 2023-10-18 23:59 | disposition home or self-care (01) ==
LOC: DI.S 08:00
PROVIDERS: ATTEND Registered Nurse
DX: M25.572 Pain in left ankle and joints of left foot (principal); S82.832D Other fracture of upper and lower end of left fibula, subsequent encounter for closed fracture with routine healing; M47.816 Spondylosis without myelopathy or radiculopathy, lumbar region; M51.36 Other intervertebral disc degeneration, lumbar region; M43.16 Spondylolisthesis, lumbar region